=== PATIENT | female | born 1990 | race African-American/Black ===

== ENCOUNTER 2017-03-12 18:38 | Emergency (ER) | payer SELFPAY ==
[~2017-03-12] VITALS: Ht 162.6 cm; Wt 53.0 kg
[~2017-03-12 18:38] MED LIST: HYDR-523 PO; IBUP50DR41 PO
[2017-03-12 18:47] VITALS: BP 107/68
[2017-03-12] MEDS ORDERED: KETOROLAC 60MG/2ML VIAL IM ONE (22:15)
== END 2017-03-13 00:09 | disposition home or self-care (01) ==
LOC: ER 21:37
DX: K08.89 Other specified disorders of teeth and supporting structures (principal); F17.210 Nicotine dependence, cigarettes, uncomplicated
CPT/HCPCS: 96372; 99283; J1885